=== PATIENT | female | born 1945 | race Caucasian/White ===

== ENCOUNTER 2016-10-03 19:33 | Emergency (ER) ==
[2016-10-03 19:42] VITALS: BP 119/75; TEMP 98.3; BMI 23.5
[2016-10-03] MEDS ORDERED: BOOSTRIX IM ONE (19:57)
[2016-10-03] MEDS ORDERED: AUGMENTIN 875-125 MG TAB PO STA (19:57)
--- NOTE | 2016-10-03 20:01 | ED.PDOC ---
General ED Provider: Dr. YOANNA AVILEZ Chief Complaint: Hand Pain/Injury Stated Complaint: Patient states that while she was trying to clean a dirty cat she got scrached with the back claws on the left hand. It then swelled up on the dorsal surface of withsome pain and mild tenderness. Time Seen by Physician: 19:58 Mode of Arrival: Walk-In Information Source: Patient Exam Limitations: No limitations Primary Care Provider: TOMAS GRAHAM Nursing and Triage Documentation Reviewed and Agree: Yes Skin Complaint Exam - Skin/Soft Tissue Complaint/Exam Onset/Duration: 1 hour Symptoms Are: Still present Timing: Constant Initial Severity: Mild Current Severity: Moderate Location: Dorsum of the Left hand Character: Reports: Swelling, Raised, Painful Aggravating: Reports: Touch Alleviating: Reports: Cold Associated Signs and Symptoms: Reports: Tenderness Related History: Denies: Similar episode, Recent trauma, Foreign body, Insect bite/sting Related Surgical History: Reports: None Recent Exposure to Others w/Similar Symptoms: No Skin Findings: Present: Other (Left dorsum of hand contusion. ) Joint Tenderness Present: No Review of Systems - Review Of Systems Constitutional: Reports: No symptoms Eyes: Reports: No symptoms Ears, Nose, Mouth, Throat: Reports: No symptoms Respiratory: Reports: No symptoms Cardiac: Reports: No symptoms GI: Reports: No symptoms : Reports: No symptoms Musculoskeletal: Reports: Other (left hand Edema ) Skin: Reports: Bruising Neurological: Reports: Anxiety Endocrine: Reports: No symptoms Hematologic/Lymphatic: Reports: No symptoms All Other Systems: Reviewed and Negative Past Medical History - Past Medical History Previously Healthy: Yes Endocrine: Reports: Dyslipidemia Cardiovascular: Reports: Hypertension Respiratory: Reports: None Hematological: Reports: None Gastrointestinal: Reports: None Genitourinary: Reports: None Neuro/Psych: Reports: Migraine Musculoskeletal: Reports: None Cancer: Reports: Other (Brain tumor ) Last Menstrual Period: post menopausal - Surgical History General Surgical History: Reports: Hysterectomy (1989), Other (Brain surgey for Aneurysm ) - Family History Family History: Reports: Unknown - Social History Smoking Status: Never smoker Hx Substance Use: No Alcohol Screening: None - Immunizations Tetanus Shot up to Date: No (unsure) Physical Exam - Physical Exam Appearance: Well-nourished Pain Distress: Mild Eyes: Conjunctiva clear ENT: Nose normal Neck: Supple Respiratory: Airway patent, Breath sounds clear, Breath sounds equal, Respirations nonlabored Cardiovascular: RRR, Pulses normal, No rub, No murmur GI/: Soft, Nontender, No masses, Bowel sounds normal, No Organomegaly Musculoskeletal: Normal strength, ROM intact, No calf tenderness, Edema Skin: Warm, Dry, Normal color Neurological: Sensation intact, Motor intact, Reflexes intact, Cranial nerves intact, Alert, Oriented Psychiatric: Anxious Critical Care Note - Critical Care Note Total Time (mins): 0 Course - Course Orders, Labs, Meds: Orders Category Date Time Status ED APPLY ICE AFFECTED AREA .ONCE EMERGENCY 10/03/16 19:57 Ordered Amoxicillin/Potassium Clav [Augmentin 875-125 mg Tab] MEDS 10/03/16 19:57 Stat 1 tab PO ONCE STA Diphth,Pertuss(Acell),Tet Vac [Boostrix] MEDS 10/03/16 19:57 Once 0.5 ml IM .ONCE ONE Medications Discontinued Medications Generic Name Dose Route Start Last Admin Trade Name Freq PRN Reason Stop Dose Admin Amoxicillin/Clavulanate Potassium 1 tab 10/03/16 19:57 Augmentin 875-125 Mg Tab PO 10/03/16 19:58 ONCE STA Diphtheria/Pertussis/Tetanus Vacc 0.5 ml 10/03/16 19:57 Boostrix IM 10/03/16 19:58 .ONCE ONE Vital Signs: Temp Pulse Resp BP Pulse Ox 10/03/16 19:35 98.3 F 79 20 119/75 96 Departure - Departure Time of Disposition: 19:01 Disposition: HOME SELF-CARE Discharge Problem: Injury of hand Instructions: Puncture Wound (ED), Contusion in Adults (ED) Condition: Stable Pt referred to PMD for follow-up: Yes Additional Instructions: Take antibiotics a prescribed Follow up with PCP in 3 days keep hand elevated. Prescriptions: Amoxicillin/Potassium Clav [Augmentin 500-125 mg Tab] 1 tab PO Q8HR #30 tablet Allergies/Adverse Reactions: Allergies acetaminophen [From Fioricet] Adverse Reaction (Verified 10/03/16 19:42) butalbital [From Fioricet] Adverse Reaction (Verified 10/03/16 19:42) caffeine [From Fioricet] Adverse Reaction (Verified 10/03/16 19:42) codeine Adverse Reaction (Verified 10/03/16 19:42) meloxicam [From Mobic] Adverse Reaction (Verified 10/03/16 19:42) phenobarbital Adverse Reaction (Verified 10/03/16 19:42) phenytoin sodium [From Dilantin] Adverse Reaction (Verified 10/03/16 19:42) phenytoin sodium extended [From Dilantin] Adverse Reaction (Verified 10/03/16 19 :42) Sulfa (Sulfonamide Antibiotics) Adverse Reaction (Verified 10/03/16 19:42) topiramate [From Topamax] Adverse Reaction (Verified 10/03/16 19:42) Home Medications: Ambulatory Orders Amitriptyline HCl 150 mg PO DAILY 03/07/13 Enalapril Maleate [Vasotec] 10 mg PO DAILY 03/07/13 Hydrochlorothiazide 25 mg PO DAILY 03/07/13 Simvastatin [Zocor] 40 mg PO DAILY 03/07/13 Diclofenac Sodium/Misoprostol [Arthrotec 75 mg-200 Mcg Tab] 75 mg PO BID Metoprolol Tartrate [Lopressor] 50 mg PO BEDTIME 01/01/16 Potassium Chloride [K-Dur] 25 meq PO DAILY 01/01/16 Hydrocodone/Acetaminophen [Lortab 10-325 mg Tablet] 10 - 325 mg PO BID PRN 05/16 Amoxicillin/Potassium Clav [Augmentin 500-125 mg Tab] 1 tab PO Q8HR #30 tablet 10/03/16 Disposition Discussed With: Patient, Family
== END 2016-10-03 20:43 | disposition home or self-care (01) ==
LOC: ED 19:33
DX: S60.512A Abrasion of left hand, initial encounter (principal); W55.03XA Scratched by cat, initial encounter
CPT/HCPCS: 90471; 99283

== ENCOUNTER 2016-11-07 11:28 | Emergency (ER) ==
[2016-11-07 11:37] VITALS: BP 100/43; TEMP 97.8; BMI 26.9
--- NOTE | 2016-11-07 12:35 | CT ---
EXAM: CT head without contrast HISTORY: Trauma COMPARISON: CT head from 08/10/2015 TECHNIQUE: Helical axial CT of the head was performed without contrast. Coronal and sagittal reconst ructions were performed. FINDINGS: There is no interval change. There is no acute intracranial abnormality. There is no hemorrhage, mid line shift, abnormal extra-axial fluid collection, hydrocephalus or evolving ischemia. The riley-whit e matter junction is well maintained. 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 There was a bifrontal craniotomy with encephalom alacia seen in the frontotemporal areas right greater than left which is stable. There is a chronic lacunar infarction in the basal ganglia on the left. There is a calcification seen over the left p arietal convexity probably a cavernous malformation with no edema. There is a dural based mass over the parasagittal high right frontal convexity which is partially calcified measuring 2.2 cm in diam eter consistent with a meningioma. There is moderate atrophy. There are no acute calvarial lesions. Visualized orbits and globes are unremarkable. The mastoid a ir cells demonstrate no significant soft tissue opacification. The visualized paranasal sinuses show no air-fluid levels. IMPRESSION: 1. No acute intracranial abnormality. 2. Incidental right frontal convexity meningioma stable compared to 08/10/2015. 3. Extensive postsurgical changes as detailed above with prior aneurysm clipping on the right middl e cerebral artery. 4. 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
[2016-11-07] MEDS ORDERED: LIDOCAINE 1 % AMP 5 ML (SUTURES) SQ STA (13:06)
--- NOTE | 2016-11-07 13:55 | ED.PDOC ---
General ED Provider: Dr. YOANNA AVILEZ Chief Complaint: Face Laceration Stated Complaint: patient is a 71 year old female who states she had a broken mirror on her nightstand. states as she was picking up the pieces and noticed blood on her hands. patient states then she noticed blood on her left cheek/ eye. patient states there is not any blood on her pillows or in the bed but isn 't sure how she cut herself Time Seen by Physician: 11:50 Mode of Arrival: Walk-In Information Source: Patient Exam Limitations: No limitations Primary Care Provider: TOMAS GRAHAM Nursing and Triage Documentation Reviewed and Agree: Yes Review of Systems - Review Of Systems Constitutional: Reports: No symptoms Eyes: Reports: No symptoms Ears, Nose, Mouth, Throat: Reports: No symptoms Respiratory: Reports: No symptoms Cardiac: Reports: No symptoms GI: Reports: No symptoms : Reports: No symptoms Musculoskeletal: Reports: No symptoms Skin: Reports: Bruising Neurological: Reports: No symptoms Endocrine: Reports: No symptoms Hematologic/Lymphatic: Reports: No symptoms All Other Systems: Reviewed and Negative Past Medical History - Past Medical History Previously Healthy: Yes Endocrine: Reports: Dyslipidemia Cardiovascular: Reports: Hypertension Respiratory: Reports: None Hematological: Reports: None Gastrointestinal: Reports: None Genitourinary: Reports: None Neuro/Psych: Reports: Migraine Musculoskeletal: Reports: None Cancer: Reports: Other (Brain tumor ) Last Menstrual Period: n/a - Surgical History General Surgical History: Reports: Hysterectomy (1989), Other (Brain surgey for Aneurysm ) - Family History Family History: Reports: Unknown - Social History Smoking Status: Never smoker Hx Substance Use: No Alcohol Screening: None - Immunizations Tetanus Shot up to Date: Yes (01/03) Physical Exam - Physical Exam Appearance: Ill-appearing Ill-appearing: Mild Pain Distress: Moderate Eyes: NESSA, EOMI, Conjunctiva clear ENT: Ears normal, Nose normal, Oropharynx normal Neck: Supple Respiratory: Airway patent, Breath sounds clear, Breath sounds equal, Respirations nonlabored Cardiovascular: RRR, Pulses normal, No rub, No murmur Skin: Warm, Dry Neurological: Sensation intact, Motor intact, Reflexes intact, Cranial nerves intact, Alert, Oriented Psychiatric: Affect appropriate, Mood appropriate Interpretation - Radiology Interpretation Radiology Interpretation By: Radiologist Radiology Results: Negative Exam Interpreted: CT Scan (Head without ) Procedures - Laceration/Wound Repair left facial laceration Wound Description: Irregular, Flap Wound Length (cm): 2 Wound Width: 0.5 Wound Depth: 0.2 Wound Explored: Clean Wound Irrigated: Yes Wound Prep: Citlaliiclehilaria Anesthesia: Lidocaine Wound Debrided: Minimal Undermining: Minimal Wound Margins: Flaps aligned Wound Repaired With: Sutures Suture Size and Type: 5.0 and 6.0 Number of Sutures: 12 (running and simple interrupted ) Layer Closure?: No Sterile Dressing Applied?: Yes Progress: Tolerated procedure well Critical Care Note - Critical Care Note Total Time (mins): 0 Course - Course Orders, Labs, Meds: Orders Category Date Time Status Lidocaine HCl/Pf [Lidocaine 1 % Amp 5 ml (Sutures)] MEDS 11/07/16 13:06 Discontinued 5 ml SQ ONCE STA CT HEAD W/O CONTRAST Stat RADS 11/07/16 11:56 Completed Medications Discontinued Medications Generic Name Dose Route Start Last Admin Trade Name Freq PRN Reason Stop Dose Admin Lidocaine HCl 5 ml 11/07/16 13:06 11/07/16 13:24 Lidocaine 1 % Amp 5 Ml (Sutures) SQ 11/07/16 13:07 5 ml ONCE STA Administration Vital Signs: Temp Pulse Resp BP Pulse Ox 11/07/16 11:28 97.8 F 74 14 100/43 L 96 Departure - Departure Time of Disposition: 13:53 Disposition: HOME SELF-CARE Discharge Problem: Facial laceration Instructions: Facial Laceration (ED) Condition: Stable Pt referred to PMD for follow-up: Yes Additional Instructions: Have sutures removed in in 7-10 days Follow up with PCP in 3 days Allergies/Adverse Reactions: Allergies acetaminophen [From Fioricet] Adverse Reaction (Verified 11/07/16 11:32) butalbital [From Fioricet] Adverse Reaction (Verified 11/07/16 11:32) caffeine [From Fioricet] Adverse Reaction (Verified 11/07/16 11:32) codeine Adverse Reaction (Verified 11/07/16 11:32) meloxicam [From Mobic] Adverse Reaction (Verified 11/07/16 11:32) phenobarbital Adverse Reaction (Verified 11/07/16 11:32) phenytoin sodium [From Dilantin] Adverse Reaction (Verified 11/07/16 11:32) phenytoin sodium extended [From Dilantin] Adverse Reaction (Verified 11/07/16 11 :32) Sulfa (Sulfonamide Antibiotics) Adverse Reaction (Verified 11/07/16 11:32) topiramate [From Topamax] Adverse Reaction (Verified 11/07/16 11:32) Home Medications: Ambulatory Orders Amitriptyline HCl 150 mg PO DAILY 03/07/13 Enalapril Maleate [Vasotec] 10 mg PO DAILY 03/07/13 Hydrochlorothiazide 25 mg PO DAILY 03/07/13 Simvastatin [Zocor] 40 mg PO DAILY 03/07/13 Diclofenac Sodium/Misoprostol [Arthrotec 75 mg-200 Mcg Tab] 75 mg PO BID Metoprolol Tartrate [Lopressor] 50 mg PO BEDTIME 01/01/16 Potassium Chloride [K-Dur] 25 meq PO DAILY 01/01/16 Hydrocodone/Acetaminophen [Lortab 10-325 mg Tablet] 10 - 325 mg PO BID PRN 05/16 Amoxicillin/Potassium Clav [Augmentin 500-125 mg Tab] 1 tab PO Q8HR #30 tablet 10/03/16 Disposition Discussed With: Patient, Family
== END 2016-11-07 14:08 | disposition home or self-care (01) ==
LOC: ED 11:28
DX: S01.412A Laceration without foreign body of left cheek and temporomandibular area, initial encounter (principal); W25.XXXA Contact with sharp glass, initial encounter
CPT/HCPCS: 99283

== ENCOUNTER 2018-09-03 22:14 | Emergency (ER) | payer OTHER ==
[2018-09-03 22:37] VITALS: TEMP 99.1; BMI 24.6
--- NOTE | 2018-09-03 22:49 | ED.PDOC ---
General ED Provider: Dr. CORY CHO Chief Complaint: Abdominal Pain Stated Complaint: Had colonoscopy on .Apparently all negative.Pt believes there was no Bx taken,Now belly ache,Started eating early after scope.Concerned no BM. Time Seen by Physician: 22:25 Mode of Arrival: Walk-In Information Source: Patient Exam Limitations: No limitations Primary Care Provider: TOMAS GRAHAM Nursing and Triage Documentation Reviewed and Agree: Yes Does patient meet sepsis criteria?: No System Inflammatory Response Syndrome: Not Applicable Sepsis Protocol: For patient's 13 years and over: Temp is 96.8 and below OR 101 and greater Pulse >90 BPM Resp >20/minute Acutely Altered Mental Status Are patient's symptoms suggestive of a new infection, such as: -Pneumonia -Skin, Soft Tissue -Endocarditis -UTI -Bone, Joint Infection -Implantable Device -Acute Abdominal Infection -Wound Infection -Meningitis -Blood Stream Catheter Infection -Unknown GI Complaint Exam - Abdominal Pain Complaint/Exam Duration: shortly after colonoiscopy on . Symptoms Are: Still present Timing: Intermittent Initial Severity: Moderate Current Severity: Mild Location of Pain: Diffuse Radiates To: Reports: Flank, LLQ, RLQ Character: Reports: Dull, Aching Aggravating: Reports: None Alleviating: Reports: Rest Associated Signs and Symptoms: Reports: Decreased appetite AAA Risk Factors: Reports: None Cardiac Risk Factors: Reports: None Surgical Obstruction Risk Factors: Reports: Colicky abdominal pain Related Surgical History: Reports: None Differential Diagnoses: Bowel Obstruction, Irritable Bowel Syndrome Review of Systems - Review Of Systems Constitutional: Reports: No symptoms Eyes: Reports: No symptoms Ears, Nose, Mouth, Throat: Reports: No symptoms Respiratory: Reports: No symptoms Cardiac: Reports: No symptoms GI: Reports: Abdominal pain : Reports: No symptoms Musculoskeletal: Reports: No symptoms Skin: Reports: No symptoms Neurological: Reports: No symptoms Endocrine: Reports: No symptoms Hematologic/Lymphatic: Reports: No symptoms All Other Systems: Reviewed and Negative Past Medical History - Past Medical History Previously Healthy: Yes Endocrine: Reports: Dyslipidemia Cardiovascular: Reports: Hypertension Respiratory: Reports: None Hematological: Reports: None Gastrointestinal: Reports: None Genitourinary: Reports: None Neuro/Psych: Reports: Migraine Musculoskeletal: Reports: None Cancer: Reports: Other (Brain tumor ) Last Menstrual Period: 1989 - Surgical History General Surgical History: Reports: Hysterectomy (1989), Other (Brain surgey for Aneurysm ) - Family History Family History: Reports: Unknown - Social History Smoking Status: Never smoker Hx Substance Use: No Alcohol Screening: None - Immunizations Tetanus Shot up to Date: Yes Physical Exam - Physical Exam Appearance: Well-appearing Ill-appearing: None Pain Distress: Mild Eyes: NESSA ENT: Ears normal Neck: Supple Respiratory: Airway patent Cardiovascular: RRR GI/: Tender Musculoskeletal: Normal strength Skin: Warm Neurological: Sensation intact Critical Care Note - Critical Care Note Total Time (mins): 0 Course - Course Orders, Labs, Meds: Orders Category Date Time Status IV [ED IV/MEDIPORT/POWERPORT] .ONCE EMERGENCY 09/03/18 23:02 Active CBC W/ AUTO DIFF Stat LAB 09/03/18 23:05 Received 0.9 % Sodium Chloride [Saline Flush] MEDS 09/03/18 23:02 Ordered 1 syr IVF PRN PRN Hydromorphone HCl [Dilaudid 0.5 mg/0.5 ml Syringe] MEDS 09/03/18 23:03 Discontinued 0.5 mg IVP ONCE STA Sodium Chloride 0.9% [Sodium Chloride] 500 ml MEDS 09/03/18 23:[address] ABDOMEN W/O CONTRAST Stat RADS 09/03/18 22:56 Ordered Medications Generic Name Dose Route Start Last Admin Trade Name Freq PRN Reason Stop Dose Admin Sodium Chloride 500 mls @ 500 mls/hr 09/03/18 23:03 09/03/18 23:17 Sodium Chloride IV 09/04/18 00:02 500 mls/hr BOLUS STA Administration Sodium Chloride 1 syr 09/03/18 23:02 09/03/18 23:17 Saline Flush IVF 1 syr PRN PRN Administration To flush IV Discontinued Medications Generic Name Dose Route Start Last Admin Trade Name Freq PRN Reason Stop Dose Admin Hydromorphone HCl 0.5 mg 09/03/18 23:03 09/03/18 23:17 Dilaudid 0.5 Mg/0.5 Ml Syringe IVP 09/03/18 23:04 0.5 mg ONCE STA Administration Vital Signs: Temp Pulse Resp BP Pulse Ox 09/03/18 22:21 99.1 F 67 20 178/91 H 97 Departure - Departure Time of Disposition: 00:34 Disposition: HOME SELF-CARE Discharge Problem: Constipation by delayed colonic transit Instructions: Abdominal Pain (ED) Condition: Good Pt referred to PMD for follow-up: Yes IPMP verified?: No Allergies/Adverse Reactions: Allergies acetaminophen [From Fioricet] Adverse Reaction (Verified 09/03/18 23:27) butalbital [From Fioricet] Adverse Reaction (Verified 09/03/18 23:27) caffeine [From Fioricet] Adverse Reaction (Verified 09/03/18 23:27) codeine Adverse Reaction (Verified 09/03/18 23:27) meloxicam [From Mobic] Adverse Reaction (Verified 09/03/18 23:27) phenobarbital Adverse Reaction (Verified 09/03/18 23:27) phenytoin sodium [From Dilantin] Adverse Reaction (Verified 09/03/18 23:27) phenytoin sodium extended [From Dilantin] Adverse Reaction (Verified 09/03/18 23 :27) Sulfa (Sulfonamide Antibiotics) Adverse Reaction (Verified 09/03/18 23:27) topiramate [From Topamax] Adverse Reaction (Verified 09/03/18 23:27) Home Medications: Ambulatory Orders Amitriptyline HCl 150 mg PO DAILY 03/07/13 Enalapril Maleate [Vasotec] 10 mg PO DAILY 03/07/13 Hydrochlorothiazide 25 mg PO DAILY 03/07/13 Simvastatin [Zocor] 40 mg PO DAILY 03/07/13 Diclofenac Sodium/Misoprostol [Arthrotec 75 mg-200 Mcg Tab] 75 mg PO BID Metoprolol Tartrate [Lopressor] 50 mg PO BEDTIME 01/01/16 Potassium Chloride [K-Dur] 25 meq PO DAILY 01/01/16 Hydrocodone/Acetaminophen [Lortab 10-325 mg Tablet] 10 - 325 mg PO BID PRN 05/16 Disposition Discussed With: Patient
[2018-09-03] MEDS ORDERED: SODIUM CHLORIDE 500 ML IV STA (23:03)
[2018-09-03] MEDS ORDERED: DILAUDID 0.5 MG/0.5 ML SYRINGE IVP STA (23:03)
[2018-09-03 23:36] VITALS: BP 143/75
--- NOTE | 2018-09-04 00:24 | CT ---
EXAM: CT of the abdomen and pelvis without contrast. HISTORY: Abdominal pain after colonoscopy 2-3 days. PROCEDURE: Contiguous axial CT images of the abdomen and pelvis without contrast with coronal and sa gittal reformats. FINDINGS: The exam is limited without IV contrast. The liver, gallbladder, pancreas, spleen, adrenal glands and left kidney are normal in appearance. There is a fluid density cyst in the right kidney. The abdominal aorta is within normal limits in diameter. The stomach is elongated. The appendix i s not visualized. There is fecal stasis in the cecum and ascending colon. There is a moderate amoun t of air in the colon. No bowel obstruction. No free fluid or free air in the abdomen or pelvis. T here is nonspecific edema and inflammatory stranding in the mesenteric fat in the central pelvis. Th e bladder is adequately filled and normal in appearance. The uterus is surgically absent. There are degenerative changes in the spine. Impression: Nonspecific edema and inflammatory stranding in the mesenteric fat in the central pelvis. Recommend correlation with history and further evaluation if clinically indicated. Fecal stasis in the colon. The appendix is not visualized. Hysterectomy.
== END 2018-09-04 00:50 | disposition home or self-care (01) ==
LOC: ED 22:14
DX: K59.01 Slow transit constipation (principal); Z98.890 Other specified postprocedural states; E78.5 Hyperlipidemia, unspecified; I10 Essential (primary) hypertension; Z79.899 Other long term (current) drug therapy
CPT/HCPCS: 36415; 85025; 96361; 96374; 96375; 99283

== ENCOUNTER 2018-12-26 19:53 | Emergency (ER) ==
[2018-12-26 19:58] VITALS: BP 103/65; TEMP 97.5; BMI 23.4
--- NOTE | 2018-12-26 20:37 | ED.PDOC ---
General ED Provider: Dr. REANNA VIRAMONTES MD Chief Complaint: Abdominal Pain Stated Complaint: abdominal pain present now gone happened before Time Seen by Physician: 20:26 Mode of Arrival: Walk-In Information Source: Patient, Family Primary Care Provider: TOMAS GRAHAM Nursing and Triage Documentation Reviewed and Agree: Yes Does patient meet sepsis criteria?: No If yes, has appropriate treatment been initiated?: Yes System Inflammatory Response Syndrome: Not Applicable Sepsis Protocol: For patient's 13 years and over: Temp is 96.8 and below OR 101 and greater Pulse >90 BPM Resp >20/minute Acutely Altered Mental Status Are patient's symptoms suggestive of a new infection, such as: -Pneumonia -Skin, Soft Tissue -Endocarditis -UTI -Bone, Joint Infection -Implantable Device -Acute Abdominal Infection -Wound Infection -Meningitis -Blood Stream Catheter Infection -Unknown Review of Systems - Review Of Systems Constitutional: Reports: Sweats Eyes: Reports: No symptoms Ears, Nose, Mouth, Throat: Reports: No symptoms Respiratory: Reports: No symptoms Cardiac: Reports: No symptoms GI: Reports: Abdominal pain, Constipated : Reports: No symptoms Musculoskeletal: Reports: No symptoms Skin: Reports: No symptoms Neurological: Reports: No symptoms Endocrine: Reports: No symptoms Hematologic/Lymphatic: Reports: No symptoms All Other Systems: Reviewed and Negative Past Medical History - Past Medical History Previously Healthy: Yes Endocrine: Reports: Dyslipidemia Cardiovascular: Reports: Hypertension Respiratory: Reports: None Hematological: Reports: None Gastrointestinal: Reports: None Genitourinary: Reports: None Neuro/Psych: Reports: Migraine Musculoskeletal: Reports: None Cancer: Reports: Other (Brain tumor ) Last Menstrual Period: none - Surgical History General Surgical History: Reports: Hysterectomy (1989), Other (Brain surgey for Aneurysm ) - Family History Family History: Reports: Unknown - Social History Smoking Status: Never smoker Hx Substance Use: No Alcohol Screening: None Physical Exam - Physical Exam Appearance: Well-appearing, No pain distress, Well-nourished Ill-appearing: None Pain Distress: None Eyes: NESSA, EOMI, Conjunctiva clear ENT: Ears normal, Nose normal, Oropharynx normal Respiratory: Airway patent, Breath sounds clear, Breath sounds equal, Respirations nonlabored Cardiovascular: RRR, Pulses normal, No rub, No murmur GI/: Soft, Tender (near unbilicus), Bowel sounds hypoactive Musculoskeletal: Normal strength, ROM intact, No edema, No calf tenderness Skin: Warm, Dry, Normal color Neurological: Sensation intact, Motor intact, Reflexes intact, Cranial nerves intact, Alert, Oriented Psychiatric: Affect appropriate, Mood appropriate Critical Care Note - Critical Care Note Total Time (mins): 0 Course - Course Hematology/Chemistry: 12/26/18 20:48 12/26/18 20:48 Orders, Labs, Meds: Lab Review 12/26/18 12/26/18 20:48 20:48 WBC 17.84 H RBC 4.32 Hgb 13.2 Hct 38.2 MCV 88.4 MCH 30.6 MCHC 34.6 RDW Coeff of [place] 12.9 Plt Count 320 Immature Gran % (Auto) 0.6 Neut % (Auto) 79.2 Lymph % (Auto) 13.5 [place] % (Auto) 5.7 Eos % (Auto) 0.5 Baso % (Auto) 0.5 Immature Gran # (Auto) 0.1 Neut # (Auto) 14.1 H Lymph # (Auto) 2.4 [place] # (Auto) 1.0 Eos # (Auto) 0.1 Baso # (Auto) 0.1 Sodium 130.6 L Potassium 3.64 Chloride 90.4 L Carbon Dioxide 28.7 Anion Gap 15.14 BUN 19.7 H Creatinine 1.01 Estimated GFR (MDRD) 54.00 BUN/Creatinine Ratio 19.50 Glucose 122.5 H Calcium 9.47 Total Bilirubin 0.58 AST 20.8 ALT 16.2 Alkaline Phosphatase 117.5 Total Protein 7.11 Albumin 4.35 Globulin 2.76 Albumin/Globulin Ratio 1.57 Orders Category Date Time Status NPO REMINDER: IMAGING ONCE CARE 12/26/18 21:58 Completed CBC W/ AUTO DIFF Stat LAB 12/26/18 20:48 Completed CMP [COMPREHENSIVE METABOLIC PANEL] Stat LAB 12/26/18 20:48 Completed UA [URINALYSIS C & S IF INDICATED] Stat LAB 12/26/18 21:[address] ABDOMEN W/CONTRAST Stat RADS 12/26/18 21:57 Completed KUB [ABDOMEN 1 VIEW] Stat RADS 12/26/18 20:36 Taken Vital Signs: Temp Pulse Resp BP Pulse Ox 12/26/18 19:53 97.5 F L 51 L 20 103/65 98 Departure - Departure Time of Disposition: 23:33 Disposition: HOME SELF-CARE Discharge Problem: Cholecystitis Instructions: Acute Abdominal Pain (ED) Condition: Good Pt referred to PMD for follow-up: Yes IPMP verified?: No Prescriptions: Ciprofloxacin HCl [Cipro] 500 mg PO Q12HR 5 Days #10 tablet NS Allergies/Adverse Reactions: Allergies acetaminophen [From Fioricet] Adverse Reaction (Verified 12/26/18 19:56) butalbital [From Fioricet] Adverse Reaction (Verified 12/26/18 19:56) caffeine [From Fioricet] Adverse Reaction (Verified 12/26/18 19:56) codeine Adverse Reaction (Verified 12/26/18 19:56) meloxicam [From Mobic] Adverse Reaction (Verified 12/26/18 19:56) phenobarbital Adverse Reaction (Verified 12/26/18 19:56) phenytoin sodium [From Dilantin] Adverse Reaction (Verified 12/26/18 19:56) phenytoin sodium extended [From Dilantin] Adverse Reaction (Verified 12/26/18 19 :56) Sulfa (Sulfonamide Antibiotics) Adverse Reaction (Verified 12/26/18 19:56) topiramate [From Topamax] Adverse Reaction (Verified 12/26/18 19:56) Home Medications: Ambulatory Orders Enalapril Maleate [Vasotec] 10 mg PO DAILY 03/07/13 Hydrochlorothiazide 25 mg PO DAILY 03/07/13 Metoprolol Tartrate [Lopressor] 50 mg PO BID 01/01/16 Hydrocodone/Acetaminophen [Lortab 10-325 mg Tablet] 10 - 325 mg PO BID PRN 05/16 Ciprofloxacin HCl [Cipro] 500 mg PO Q12HR 5 Days #10 tablet NS 12/26/18 Oxcarbazepine [Trileptal] 300 mg PO BID 12/26/18
--- NOTE | 2018-12-26 23:19 | CT ---
Exam: CT of the abdomen with contrast History: Abdominal pain with leukocytosis Technique: [address] of the abdomen following intravenous contrast FINDINGS: The lung bases are clear. No significant liver abnormality. The adrenals, pancreas and s pleen are unremarkable. The stomach and hiatus are unremarkable.The gallbladder the gallbladder is d istended without surrounding inflammation. The extrahepatic biliary duct is dilated measuring up to 8 mm. Sub centimeter benign cyst on the right kidney. Otherwise, kidneys and proximal collecting sy stem are unremarkable. The appendix is not present within the field of study. Nondistended transver se colon with possible thickening and no surrounding inflammation. Normal caliber bowel loops. Vasc ular structures appear normal. Impression: 1. Distended gallbladder and extrahepatic biliary duct. Correlate for possible biliary obstruction. No cholelithiasis is seen by CT. Prior noncontrast CT on 09/03/2018 is not adequate for comparison . 2. Thickening of the transverse colon and the left colon versus non distension pseudo thickening. N o surrounding inflammation. Correlate for colitis.
--- NOTE | 2018-12-27 07:55 | DI ---
EXAM: Abdomen one view HISTORY: Abdominal pain COMPARISON: None TECHNIQUE: Single view abdomen was performed. FINDINGS: There are no dilated loops of small bowel. There is air and stool throughout the colon. T here are no abnormal calcifications. There are no acute abnormalities of the bones. Degenerative ch thomas in the spine. IMPRESSION: No acute abnormality identified.
== END 2018-12-26 23:38 | disposition home or self-care (01) ==
LOC: ED 19:53
DX: K81.9 Cholecystitis, unspecified (principal); I10 Essential (primary) hypertension; E78.5 Hyperlipidemia, unspecified
CPT/HCPCS: 36415; 80053; 85025; 99283